=== PATIENT | female | born 1985 ===

== ENCOUNTER 2016-11-09 19:56 | Emergency (ER) | payer MEDICAID ==
[2016-11-09 20:12] VITALS: BP 129/78; PULSE 88; RESP 20; TEMP 98.2; O2SAT 100
--- NOTE | 2016-11-09 20:21 | C.PDOC ---
History Of Present Illness 31 year old female complains of right lower back pain since yesterday. She took Tylenol without relief. She states pain is intermittent and denies any exacerbating or relieving factors. She admits to urinary frequency but denies dysuria. Her last menses was 4 months ago, but states she is irregular. Denies abdominal pain, nausea, fever, vaginal discharge. Time Seen by Provider: 11/09/16 20:13 Chief Complaint (Nursing): Back Pain History Per: Patient History/Exam Limitations: no limitations Onset/Duration Of Symptoms: Days Current Symptoms Are (Timing): Still Present Quality Of Discomfort: "Pain" Previous Symptoms: None Past Medical History Reviewed: Historical Data, Nursing Documentation, Vital Signs Vital Signs: Last Vital Signs Temp 98.2 F 11/09/16 20:08 Pulse 88 11/09/16 20:08 Resp 20 11/09/16 20:08 BP 129/78 11/09/16 20:08 Pulse Ox 100 11/09/16 20:39 - Medical History PMH: No Chronic Diseases Surgical History: No Surg Hx - [facility] Procedures MANUAL ASSIST DELIV NEC (03/02/13) Family History: States: Unknown Family Hx - Social History Hx Tobacco Use: No Hx Alcohol Use: No Hx Substance Use: No - Immunization History Hx Tetanus Toxoid Vaccination: No Hx Influenza Vaccination: Yes Hx Pneumococcal Vaccination: No Review Of Systems Constitutional: Negative for: Fever, Weakness, Malaise Cardiovascular: Negative for: Chest Pain Respiratory: Negative for: Cough, Shortness of Breath Gastrointestinal: Negative for: Vomiting, Abdominal Pain, Diarrhea Genitourinary: Positive for: Frequency. Negative for: Dysuria, Vaginal Bleeding , Pelvic Pain Musculoskeletal: Positive for: Back Pain Skin: Negative for: Rash Neurological: Negative for: Headache, Dizziness Physical Exam - Physical Exam Appears: Non-toxic, No Acute Distress Skin: Warm, Dry, No Diaphoretic, No Rash Head: Atraumatic, Normacephalic Eye(s): bilateral: Normal Inspection, EOMI Nose: Normal Oral Mucosa: Moist Neck: Normal ROM Chest: Symmetrical Cardiovascular: Rhythm Regular, No Murmur Respiratory: Normal Breath Sounds, No Wheezing Gastrointestinal/Abdominal: Bowel Sounds (active), Soft, No Tenderness, No Distention, No Guarding Back: Normal Inspection, No CVA Tenderness, No Vertebral Tenderness, No Paraspinal Tenderness Extremity: Bilateral: Atraumatic, Normal Color And Temperature, Normal ROM Neurological/Psych: Oriented x3 Gait: Steady ED Course And Treatment O2 Sat by Pulse Oximetry: 100 Medical Decision Making Medical Decision Making: Impression: right back pain Plan: UA and preg, she declines any pain meds Progress: UA reviewed shows LE, WBCs. Patient has penicillin allerge, will treat for UTI with Cipro. On re-examination, patient is resting comfortably in no acute distress.Patient feels comfortable going home and will be discharged. Patient given follow up instructions. Instructed to return to ER if symptoms worsen or new symptoms arise. Disposition Counseled Patient/Family Regarding: Diagnosis, Need For Followup, Rx Given - Disposition Referrals: Tapan De Leon MD [Medical Doctor] - Disposition: HOME/ ROUTINE Disposition Time: 20:38 Condition: STABLE Additional Instructions: Your urine shows infection Take antibiotic twice daily for one week and be sure to finish taking all of antibiotic. Drink plenty of fluids. You may take ibuprofen for any pain If urine culture was performed, call back for results in 2-3 days for results to confirm antibiotic is treating UTI well. 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
[2016-11-09 20:37] LABS: RBC URINE 12 /hpf (0-3); URINE BACTERIA OCC (<OCC); URINE BILIRUBIN NEGATIVE (NEGATIVE); URINE BLOOD 2+ (NEGATIVE); URINE COLOR Yellow (YELLOW); URINE GLUCOSE (UA) 1+ mg/dL (Normal); URINE KETONE NEGATIVE (NEGATIVE); URINE LEUKOCYTE ESTERASE 1+ Leu/uL (Negative); URINE PROTEIN 1+ mg/dL (NEGATIVE); WBC URINE 6 /hpf (0-5)
== END 2016-11-09 20:45 | disposition home or self-care (01) ==
LOC: C.ER 19:56
DX: N39.0 Urinary tract infection, site not specified (principal)

== ENCOUNTER → 2017-11-17 18:55 | Emergency (ER) | payer MEDICAID | END | disposition left against medical advice (07) | LOC: C.ER 18:55 | DX: Z02.89 Encounter for other administrative examinations (principal); R10.9 Unspecified abdominal pain ==

== ENCOUNTER 2017-12-28 18:50 | Emergency (ER) | payer MEDICAID ==
[2017-12-28 19:49] VITALS: O2SAT 98
[2017-12-28 20:06] LABS: HCG,QUALITATIVE URINE NEGATIVE (NEGATIVE)
[2017-12-28 20:52] LABS: SQUAMOUS EPITHIAL 19 /hpf (0-5); URINE BACTERIA RARE (<OCC); URINE BILIRUBIN NEGATIVE (NEGATIVE); URINE BLOOD 3+ (NEGATIVE); URINE CLARITY Hazy (Clear); URINE COLOR Yellow (YELLOW); URINE GLUCOSE (UA) NORMAL (Normal); URINE LEUKOCYTE ESTERASE TRACE Leu/uL (Negative); URINE PROTEIN 2+ mg/dL (NEGATIVE)
--- NOTE | 2017-12-28 21:02 | C.PDOC ---
History Of Present Illness 32 year old female presents to the ED for evaluation of heavy vaginal bleeding. Patient reports that she had a depo shot a year and half ago, after which she did not had her period for the whole year. Patient reports that 2 months ago she got her period and since then has been spotting non stop. 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 Patient reports she continues to bleed, today while at work she noticed considerable heavy bleeding associated with suprapubic cramping and dizziness. Patient decided to come in for an evaluation. Patient denies fever, chills, nausea, vomit, headache, CP, SOB, weakness, numbness. Time Seen by Provider: 12/28/17 20:27 Chief Complaint (Nursing): Abdominal Pain History Per: Patient History/Exam Limitations: no limitations Onset/Duration Of Symptoms: Days Current Symptoms Are (Timing): Still Present Location Of Pain/Discomfort: Suprapubic Radiation Of Pain To:: None Quality Of Discomfort: Cramping Associated Symptoms: Urinary Symptoms. denies: Nausea, Vomiting, Diarrhea Exacerbating Factors: None Alleviating Factors: None Recent travel outside of the [place]: No Additional History Per: Patient Abnormal Vaginal Bleeding: Yes Past Medical History Reviewed: Historical Data, Nursing Documentation, Vital Signs Vital Signs: Last Vital Signs Temp 98.5 F 12/28/17 22:35 Pulse 73 12/28/17 22:35 Resp 96 H 12/28/17 22:35 BP 114/76 12/28/17 22:35 Pulse Ox 98 12/28/17 22:30 - Medical History PMH: No Chronic Diseases Surgical History: No Surg Hx - [facility] Procedures MANUAL ASSIST LIANE NEC (03/02/13) Family History: States: Unknown Family Hx - Social History Hx Tobacco Use: No Hx Alcohol Use: No Hx Substance Use: No - Immunization History Hx Tetanus Toxoid Vaccination: No Hx Influenza Vaccination: Yes Hx Pneumococcal Vaccination: No Review Of Systems Constitutional: Negative for: Fever, Chills Cardiovascular: Negative for: Chest Pain, Palpitations Respiratory: Negative for: Cough, Shortness of Breath Gastrointestinal: Positive for: Abdominal Pain. Negative for: Nausea, Vomiting Genitourinary: Positive for: Vaginal Bleeding. Negative for: Dysuria, Hematuria Musculoskeletal: Negative for: Back Pain Neurological: Positive for: Dizziness. Negative for: Weakness, Numbness Physical Exam - Physical Exam Appears: Non-toxic, No Acute Distress Skin: Normal Color, Warm, Dry Head: Atraumatic, Normacephalic Eye(s): bilateral: Normal Inspection Oral Mucosa: Moist Neck: Normal ROM, Supple Chest: Symmetrical Cardiovascular: Rhythm Regular Respiratory: Normal Breath Sounds, No Rales, No Rhonchi, No Wheezing Gastrointestinal/Abdominal: Soft, No Tenderness, No Guarding, No Rebound Extremity: Normal ROM, No Tenderness, No Swelling Neurological/Psych: Oriented x3, Normal Speech Gait: Steady ED Course And Treatment - Laboratory Results Result Diagrams: 12/28/17 20:56 12/28/17 20:56 Lab Interpretation: Normal Urine POC: Negative O2 Sat by Pulse Oximetry: 98 (ON RA) Pulse Ox Interpretation: Normal - CT Scan/US Ultrasound pelvis Other Rad Studies (CT/US): Read By Radiologist, Radiology Report Reviewed CT/US Interpretation: Impression: Retroverted uterus with thickened endometrium. Otherwise no significant abnormalities identified. Finding suggestive of possible PCOS with multiple ovarian follicles in peripheral location with a "string of kevin" configuration. No acute findings. Reevaluation Time: 00:06 Reassessment Condition: Unchanged Medical Decision Making Medical Decision Making: Impression: heavy vaginal bleeding Plan: * Labs * UA * Pelvic US Disposition Counseled Patient/Family Regarding: Studies Performed, Diagnosis, Need For Followup, Rx Given - Disposition Referrals: [facility] [Outside] Disposition: HOME/ ROUTINE Disposition Time: 00:06 Condition: IMPROVED Prescriptions: Naproxen [Naprosyn] 1 tab PO BID PRN #25 tab PRN Reason: Pain Instructions: Absent or Irregular Periods Forms: [employer] ([place]) - Clinical Impression Clinical Impression: Abnormal vaginal bleeding - Scribe Statement The provider has reviewed the documentation as recorded by the Scribe Derrek Morton All medical record entries made by the Scribe were at my direction and personally dictated by me. I have reviewed the chart and agree that the record accurately reflects my personal performance of the history, physical exam, medical decision making, and the department course for this patient. I have also personally directed, reviewed, and agree with the discharge instructions and disposition.
[2017-12-28 21:05] LABS: BASO # 0.1 K/uL (0.0-0.2); BASO % 0.5 % (0.0-2.0); EOS # 0.2 K/uL (0.0-0.7); HEMOGLOBIN 13.5 g/dL (11.0-16.0); LYMPH # 3.4 K/uL (1.0-4.3); LYMPH % 31.8 % (20.0-40.0); MEAN CELL VOLUME 83.8 fL (81.0-99.0); MEAN CORPUSCULAR HGB CONC 34.6 g/dL (33.0-37.0); MEAN PLATELET VOLUME 8.5 fL (7.2-11.7); MONO # 0.8 K/uL (0.0-0.8); MONO % 7.3 % (0.0-10.0); NEUT # 6.3 K/uL (1.8-7.0); NEUT % 58.4 % (50.0-75.0); NRBC % 0.1 % (0.0-2.0); RBC 4.65 Mil/uL (3.80-5.20); RED CELL DISTRIBUTION WIDTH 12.8 % (11.5-14.5); WHITE BLOOD COUNT 10.8 K/uL (4.8-10.8)
[2017-12-28 21:22] LABS: ALB/GLOB RATIO 1.2 (1.0-2.1); ALBUMIN 4.2 g/dL (3.5-5.0); ALT/SGPT 36 U/L (9-52); AST/SGOT 21 U/L (14-36); BLOOD UREA NITROGEN 11 mg/dL (7-17); CALCIUM 9.1 mg/dl (8.6-10.4); GFR AFRICAN-AMERICAN > 60; GFR NON-AFRICAN AMERICAN > 60
[2017-12-29 00:24] VITALS: BP 122/81; PULSE 75; RESP 18; TEMP 98
--- NOTE | 2017-12-29 11:18 | US ---
Date of service: 12/28/2017 HISTORY: vaginal bleeding COMPARISON: None available. TECHNIQUE: Transabdominal, transvaginal. Real -time technique with 2D, duplex and color Doppler. FINDINGS: UTERUS: Measures 4.5 x 5.0 x 7.6 cm. Normal in size and appearance. No fibroid or other mass lesion seen. ENDOMETRIUM: Measures 12.1 mm in diameter. Endometrial hypertrophy without focal or diffuse abnormality. CERVIX: No cervical abnormality identified.Incidental finding: Nabothian cysts the largest measures 5 mm. RIGHT OVARY: Measures 2.4 x 3.4 x 3.2 cm. No solid mass. Normal flow. Multiple subcentimeter follicles. LEFT OVARY: Measures 2.7 x 3.3 x 3.3 cm. No solid mass. Normal flow. Multiple subcentimeter follicles. FREE FLUID: No significant free fluid noted. OTHER FINDINGS: None. IMPRESSION: Endometrial hypertrophy. No ultrasound findings to suggest gestational sac, fluid, debris, mass or polyp or other pathologic process within the endometrium. Additional benign and/or incidental findings described above. Concordant results (preliminary interpretation) provided by [facility]. Procedure Completed: 21:55 Preliminary ([facility]) Report: Dictated and Authenticated: 23:59 Final Interpretation: 11:15. December 29, 2017.
== END 2017-12-29 00:25 | disposition home or self-care (01) ==
LOC: C.ER 18:50
DX: N93.9 Abnormal uterine and vaginal bleeding, unspecified (principal)

== ENCOUNTER 2018-05-22 17:16 | Emergency (ER) | payer MEDICAID ==
[2018-05-22 17:30] VITALS: BP 146/110; PULSE 130; TEMP 100.5; O2SAT 100
--- NOTE | 2018-05-22 18:18 | C.PDOC ---
History Of Present Illness 32 y/o female presents to the ED for evaluation of fever and headache that began this morning. Patient admits she slept in the same bed as her 8 y/o child, (+) sick contact, who developed symptoms the day before. Additionally she complains of back pain. Tried taking tylenol at home with minimal relief. Otherwise patient denies any productive cough, SOB, wheezing, or other URI complaints. HPI: Influenza Time Seen by Provider: 05/22/18 17:33 Chief Complaint: Flu-like Symptoms Chief Complaint (Provider): Flu-like Symptoms History Per: Patient Exam Limitations: no limitations Onset/Duration Of Symptoms: Hrs Symptoms include: fever, headache, bodyaches Sick Contacts (Context): Family Member(s) (son) Hx Influenza Vaccination: No Past Medical History Reviewed: Historical Data, Nursing Documentation, Vital Signs Vital Signs: Last Vital Signs Temp 100.5 F H 05/22/18 17:29 Pulse 130 H 05/22/18 17:29 Resp BP 146/110 H 05/22/18 17:29 Pulse Ox 100 05/22/18 17:29 Surgical History: No Surg Hx - [facility] Procedures MANUAL ASSIST DELIV NEC (03/02/13) Family History: States: Unknown Family Hx - Social History Hx Tobacco Use: No Hx Alcohol Use: No Hx Substance Use: No - Immunization History Hx Tetanus Toxoid Vaccination: No Hx Influenza Vaccination: Yes Hx Pneumococcal Vaccination: No Review Of Systems Except As Marked, All Systems Reviewed And Found Negative. Constitutional: Positive for: Fever Cardiovascular: Negative for: Chest Pain Respiratory: Negative for: Shortness of Breath, Wheezing Gastrointestinal: Negative for: Nausea, Vomiting, Diarrhea Musculoskeletal: Positive for: Back Pain Skin: Negative for: Rash Neurological: Positive for: Headache. Negative for: Weakness, Numbness Physical Exam - Physical Exam Appears: Non-toxic, No Acute Distress Skin: Warm, Dry, No Rash Head: Atraumatic, Normacephalic Eye(s): bilateral: Normal Inspection, PERRL, EOMI Ear(s): Bilateral: Normal (no erythema) Oral Mucosa: Moist Throat: Normal, No Erythema, No Exudate Neck: Normal ROM, Supple Chest: Symmetrical Cardiovascular: Rhythm Regular, No Murmur Respiratory: Normal Breath Sounds, No Rales, No Rhonchi, No Wheezing Extremity: Bilateral: Atraumatic, Normal Color And Temperature Neurological/Psych: Oriented x3, Normal Speech - ECG O2 Sat by Pulse Oximetry: 100 (RA) Pulse Ox Interpretation: Normal - Progress ED Course And Treament: Flu swab and urine sent to the lab. Labs reviewed, flu negative. Will treat patient empirically with Tamiflu due to son's (+) flu swab. Counseled patient regarding likely diagnosis and treatment plan. Patient will be discharged home with rx for Tamiflu and Ibuprofen. Disposition - Disposition Disposition: HOME/ ROUTINE Disposition Time: 18:16 Condition: STABLE Additional Instructions: Follow up with PMD within 1-2 days. Return to ED if feel worse. 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 - Scribe Statement The provider has reviewed the documentation as recorded by the Scribleroy Lozano All medical record entries made by the Scribe were at my direction and personally dictated by me. I have reviewed the chart and agree that the record accurately reflects my personal performance of the history, physical exam, medical decision making, and the department course for this patient. I have also personally directed, reviewed, and agree with the discharge instructions and disposition.
[2018-05-22 18:36] LABS: SQUAMOUS EPITHIAL 6 /hpf (0-5); URINE BACTERIA RARE (<OCC); URINE BILIRUBIN NEGATIVE (NEGATIVE); URINE BLOOD 3+ (NEGATIVE); URINE CLARITY Clear (Clear); URINE COLOR Yellow (YELLOW); URINE GLUCOSE (UA) NORMAL (Normal); URINE LEUKOCYTE ESTERASE NEG Leu/uL (Negative); URINE PROTEIN 2+ mg/dL (NEGATIVE); URINE UROBILINOGEN NORMAL mg/dL (0.2-1.0)
== END 2018-05-22 18:33 | disposition home or self-care (01) ==
LOC: C.ER 17:16
DX: J11.1 Influenza due to unidentified influenza virus with other respiratory manifestations (principal)